=== PATIENT | male | born 1995 | race Hispanic/Latino ===

== ENCOUNTER 2018-08-05 09:30 | Observation (INO) | payer SELFPAY ==
[~2018-08-05] VITALS: Ht 168.9 cm; Wt 61.7 kg
[2018-08-05 11:13] LABS: BASOPHILS % (AUTO) 1.4 % (0.0-5.0); EOSINOPHILS % (AUTO) 2.5 % (0.0-8.0); HEMATOCRIT 41.6 % (42-54); LYMPHOCYTES % (AUTO) 32.2 % (21.0-51.0); MEAN CORPUSCULAR HEMOGLOBIN 31.9 pg (27.0-33.0); MEAN CORPUSCULAR HGB CONC 33.5 g/dL (32.0-36.0); MEAN CORPUSCULAR VOLUME 95.1 fL (80-100); MONOCYTES % (AUTO) 8.2 % (3.0-13.0); NEUTROPHILS % (AUTO) 55.7 % (40.0-77.0); NUCLEATED RED BLOOD CELLS 0.1 % (0.0-0.19); PLATELET COUNT (AUTO) 147 K/uL (130-400); RED BLOOD CELL COUNT(AUTO) 4.37 MIL/uL (4.50-6.20); RED CELL DISTRIBUTION WIDTH 12.6 % (11.0-15.5); WHITE BLOOD COUNT (AUTO) 5.2 K/uL (4.8-10.8)
[2018-08-05 11:18] LABS: POTASSIUM 5.1 mmol/L (3.5-5.1)
[2018-08-05 11:26] VITALS: BP 114/71
[2018-08-05] MEDS ORDERED: CYCL30DR OU (11:48)
[2018-08-05] MEDS ORDERED: CEFAZOLIN SODIUM 1 GM VIAL IVP SCH (12:45)
[2018-08-09] VITALS (22 sets, daily range): BP systolic 112–158; BP diastolic 58–88
[2018-08-09] MEDS ORDERED: LACTATED RINGERS 1000ML 1,000 ML IV ONE (06:45)
[2018-08-09] MEDS ORDERED: GLYCOPYRROLATE 1 MG/5 ML SYRINGE ONE (07:25)
[2018-08-09] MEDS ORDERED: NEOSTIGMINE 5MG/5ML SYR IV ONE (07:25)
[2018-08-09] MEDS ORDERED: ONDANSETRON HCL 4 MG/2 ML VIAL ONE (07:25)
[2018-08-09] MEDS ORDERED: ROCURONIUM 10MG/1ML SYR 10 MG/ML ML ONE (07:25)
[2018-08-09] MEDS ORDERED: PROPOFOL 10 MG/ML 20ML VIAL IV ONE (07:25)
[2018-08-09] MEDS ORDERED: LIDOCAINE PF 2% 5ML ABBOJECT ONE (07:25)
[2018-08-09] MEDS ORDERED: MIDAZOLAM HCL 1 MG/ML 2ML VIAL ONE (07:25)
[2018-08-09] MEDS ORDERED: DEXAMETHASONE SOD PHOSPHATE 10MG/ML 1ML VIAL ONE (07:25)
[2018-08-09] MEDS ORDERED: FENTANYL CITRATE PF 50 MCG/1 ML 2ML VIAL ONE (07:26)
[2018-08-09] MEDS ORDERED: HYDROMORPHONE 1 MG/1 ML AMP ONE (07:29)
[2018-08-09] MEDS ORDERED: PHENYLEPHRINE HCL 10 MG/ML 1ML VIAL IV ONE (11:03)
[2018-08-09] MEDS ORDERED: ESMOLOL HCL 10 MG/ML 10 ML VIAL ONE (11:25)
[2018-08-09] MEDS: LACTATED RINGERS 1000ML 1,000 ML IV SCH ×2 (11:35→21:21)
[2018-08-09] MEDS ORDERED: CEFAZOLIN SODIUM 1 GM VIAL IVP SCH (11:45)
[2018-08-09] MEDS ORDERED: MORPHINE SULFATE 2 MG/ML 1ML SYG IVP PRN (11:45)
--- NOTE | 2018-08-09 12:00 | NUR ---
Patient arrived to ICU, responds to sounds, moves all extremities, denies pain. Bed locked and low, call light in reach. Monitors on and alarms audible. Hemovac in place. Family in to see patient, informed of plan of can and visitation. Will monitor.
[2018-08-09] MEDS ORDERED: CEFAZOLIN SODIUM 1 GM VIAL IVP ONE (16:00)
--- NOTE | 2018-08-09 18:11 | NUR ---
Patient remains very sleepy but responds to sound. Moves all extremities. Vitals as recorded. Mother at bedside. Will continue to monitor.
[2018-08-09] MEDS ORDERED: MORPHINE SULFATE 4 MG/1ML SYG ONE ×2 (20:19→22:34)
[2018-08-10] VITALS (11 sets, daily range): BP systolic 85–135; BP diastolic 52–80
--- NOTE | 2018-08-10 | NUR ---
200ML EMESIS OF CLEAR THIN FLUID NOTED IN BASIN. INSTRUCTED PT TO STAY NPO (NO LONGER WITH ICE CHIPS DAY NURSE ALLOWED). ORAL CARE DONE WITH ORAL SWABS. HOB ELEVATED TO 60 DEGREES. EDUCATED THAT SIDE EFFECT OF MORPHINE IS NAUSEA AND TO REFRAIN FROM FURTHER PAIN MEDS UNTIL LATER; PT AGREED.
[2018-08-10] MEDS ORDERED: MORPHINE SULFATE 4 MG/1ML SYG ONE (01:41)
--- NOTE | 2018-08-10 07:43 | NUR ---
RECEIVED PT IN BED, AAOX3, MOTHER IS AT BEDSIDE. PT IS POST OP DAY # 1 CRANIOTOMY AND DRAINAGE OF ARACHNOID CYST WITH HEMOVAC. PT WITH C/O PHOTOPHOBIA. DRESSING TO LEFT TEMPORAL IS D/I WITH HEMOVAC IN PLACE. NEURO STATUS INTACT. DR. ARMSTRONG IN AT THIS TIME, PT IS TO BE DISCHARGED HOME TODAY. HEMOVAC TO BE REMOVED. MD DID INSTRUCT PT'S MOTHER THAT SWELLING TO PERATIVE SIDE OF FACE IS TO BE EXPECTED. PT TO F/U WITH MD AT OFFICE ON WEDNESDAY FOR LIBBY TO BE REMOVED. NO SCRIPTS GIVEN.
[2018-08-10] MEDS: Cyclosporine (Restasis) 1 EACH OU SCH (09:00)
--- NOTE | 2018-08-10 09:13 | NUR ---
HEMOVAC REMOVED WITH CATHETER INTACT. PT TOLERATED WELL. INCISION WELL APPROXIMATED, NO DRAINAGE NOTED, NO COMPLICATIONS AT THIS TIME. AREA PAINTED WITH BETADINE, 4X4s APPLIED AND SECURED WITH HYPAFIX TAPE. WILL CONT TO MONITOR.
--- NOTE | 2018-08-10 09:30 | NUR ---
COLD PACK APPLIED TO LEFT TEMPORAL SX SITE D/T C/O PAIN AFTER REMOVAL OF HEMOVAC. PT VOICED PAIN RELIEF WITH ICE PACK. WILL CONT TO MONITOR.
--- NOTE | 2018-08-10 10:18 | NUR ---
ARTERIAL LINE TO RIGHT WRIST REMOVED WITHOUT COMPLICATIONS. PT TOLERATED WELL. INSTRUCTED TO SIT UP PER MD ORDERS. PT MADE QUICK MOVEMENT AND C/O DIZZINESS. INSTRUCTED TO MAKE SLOW MOVEMENTS WHEN CHANGING POSITIONS. PT TO CONT ON CLEAR LIQUIDS BEING HE DID NOT HAVE MUCH OF HIS MEAL FOR BREAKFAST. WILL CONT TO MONITOR.
--- NOTE | 2018-08-10 11:00 | NUR ---
PT STATES HE HAS NO MORE DIZZINESS AND FEELS OK. WILL CONT TO MONITOR.
--- NOTE | 2018-08-10 12:31 | NUR ---
ALL DISCHARGE INSTRUCTIONS GIVEN TO PATIENT AND MOTHER. PT IS TO FOLLOW UP WITH DR. ARMSTRONG 08/15/18 @ 9:30. INSTRUCTED NO BATHS, NO SHOWER, NO POOLS, NO SAUNAS, NO BEACH. DRESSING IS TO BE LEFT DRY AND INTACT. STAPLE REMOVER GIVEN TO MOTHER TO TAKE TO MD APPOINTMENT. DISCUSSED WITH PATIENT AND MOTHER SIGNS AND SYMPTOMS TO MONITOR FOR, WHEN TO CALL MD OFFICE AND WHEN TO REPORT TO EMERGENCY ROOM. PIV TO LEFT HAND REMOVED WITH CATHETER INTACT.
== END 2018-08-10 12:50 | disposition home or self-care (01) ==
LOC: EDSTATUS 09:30 → DAHIP 08-09 06:02 → 2BH 08-09 12:07
PROVIDERS: ADMIT Neurological Surgery; ATTEND Neurological Surgery
DX: G93.0 Cerebral cysts (principal); H04.123 Dry eye syndrome of bilateral lacrimal glands; Z87.820 Personal history of traumatic brain injury
CPT/HCPCS: 36415; 61320; 80051; 85025; 93005; 96374; 96375; A4218 ×2; A4510; A4600; A4649 ×2; A6204; C1713 ×2; C1729 ×2; G0378 ×32; J0690 ×2; J1100; J1170; J2001; J2250; J2270 ×3; J2370; J2405; J2704; J2710; J3010; J3490 ×2; J7030; J7040; J7120 ×3